=== PATIENT | female | born 1970 | race Caucasian/White ===

== ENCOUNTER 2021-03-10 10:00 | Outpatient (RCR) | payer BC, SELFPAY | END 2021-06-09 09:41 | disposition home or self-care (01) | LOC: HO.PTCHIC 10:00 | PROVIDERS: PCP Physician Assistant Medical; Visit Provider Physician Assistant Medical | DX: M54.2 Cervicalgia (principal) | CPT/HCPCS: 97110; 97140; 97161 ==

== ENCOUNTER 2023-05-01 09:18 | Outpatient (AMB) | payer BC, SELFPAY ==
--- NOTE | 2023-05-01 09:23 | A.OFFVIS_ITS ---
Intake Vital Signs 05/01/23 09:30 Height 5 ft 2 in Weight 207 lb 4 oz BMI 37.9 BP 124/82 Blood Pressure Location Lt brachial Position Sitting Pulse 71 Pulse Source Pulse Oximeter Pulse Oximetry (%) 97 Oxygen Delivery Method Room Air Intake Visit Reasons: ENP-Snoring/Fatigue-LVM Intake Note: Patient presents for Trouble sleeping and very exhausted. Snoring a lot. Allergies No Known Allergies Allergy (Verified 05/01/23 09:28) HPI HPI Comments History of Present Illness Details 52 y/o female patient presents for new i n-person visit for sleep consultation. Pt reports trouble sleeping, difficulty staying sleep. She snores loudly, and it wakes her up. Pt reports non refreshing sleep, morning headache, and daytime sleepiness. She gained at least 25 lb during the pandemic. Sleep questionnaire: Have you ever been diagnosed with a sleep disorder? No. Have you ever had a sleep study in the past? No. Have you ever been treated for a sleep disorder? No. Do you take medications for a sleep disorder? Zquel, melatonin, Advil PM occasionally. Do you snore? Yes. Do you wake up gasping at night? No. Do you have episodes of apneas? Don't know. If yes, are they witnessed? No, sleeps alone. Do you have episodes of nocturnal chest pain or dyspnea? No. Do you have difficulty initiating sleep? No. Do you have difficulty maintaining sleep? Yes. Do you wake up tired? Yes. Do you have headaches upon awakening? Yes, occasionally. Do you wake up with dry mouth or throat? Yes. Do you have GERD? Yes. Do you have nocturia? Yes, occasionally. Do you have nocturnal leg cramps? No. Do you have symptoms of restless legs? No. Do you act out your dreams? No. Sleep hygiene questionnaire: What is your usual sleep routine? Usual bedtime is at 10-11 pm ; Usual wake up time is at 7-8 am. Do you take naps? When she can. Is your sleep environment cool, dark, and quiet? Yes. Do you exercise? Yes, stretching and dancing. Do you take caffeine or other stimulants? No. Do you use electronics in bed? Yes. What is your work schedule? 9 am to 2 pm. Hypersomnolence questionnaire: Do you have daytime tiredness or fatigue? Yes. Do you easily fall asleep when inactive? Not that often. Have you ever had episodes of sudden weakness? No. Have you ever had episodes of sudden weakness associated with strong emotions? No. PFSH Surgical History H/O section Family History Father Atherosclerosis Mother Skin cancer Diabetes Hypertension Social History Alcohol intake: current Comment: Social drinking Patient Tobacco Use Status: Never used Tobacco Review of Systems Const All systems reviewed & are unremarkable except as noted in HPI and below Physical Exam Vital Signs: Last Vital Signs Pulse 71 05/01/23 09:30 BP 124/82 05/01/23 09:30 Pulse Ox 97 05/01/23 09:30 Oxygen Delivery Method Room Air 05/01/23 09:30 BMI result Body Mass Index 37.9 Const General: cooperative Nutritional Appearance: obese Orientation/consciousness: patient oriented x3 Neck Neck: Yes full ROM and Yes supple Resp Effort & Inspection: normal respiratory effort and able to speak in complete sentences Neuro General: patient oriented x3, gait normal and moves all extremities Cranial nerves: Yes CN's II-XII intact bilaterally Cognition (Neuro): normal cognition Gait exam (Neuro): Normal gait present Motor exam (neuro): 5/5 motor strength present throughout Assessment & Plan Assessment & Plan (1) Daytime sleepiness: Code(s): R40.0 - Somnolence (2) Loud snoring: Code(s): R06.83 - Snoring Plan Pt is advised to undergo home sleep study to assess for sleep apnea. Will f/u with pt after study to discuss results and appropriate treatment options. Sleep hygiene education provided, limit electronic use before bedtime. Pt to call with any worsening concerns or questions. Orders: Orders RT home sleep study Today R06.83 - Snoring, R40.0 - Somnolence Coding Level of Care Code New Pt Level 3 (50914) Diagnoses Daytime sleepiness R40.0 Loud snoring R06.83
[2023-05-01 09:30] VITALS: BP 124/82; PULSE 71; O2SAT 97; BMI 37.9
== END 2023-05-01 10:24 | disposition home or self-care (01) ==
PROVIDERS: PCP Physician Assistant Medical; Visit Provider Nurse Practitioner Family
DX: R40.0 Somnolence (principal); R06.83 Snoring
CPT/HCPCS: 99203

== ENCOUNTER → 2023-05-01 09:18 | Outpatient (BNVA) | payer BC, SELFPAY | PROVIDERS: PCP Physician Assistant Medical; Visit Provider Nurse Practitioner Family ==

== ENCOUNTER → 2023-07-04 08:20 | Outpatient (REF) | payer BC, SELFPAY | LOC: HO.SL 08:20 | PROVIDERS: PCP Internal Medicine; Visit Provider Nurse Practitioner Family | DX: G47.33 Obstructive sleep apnea (adult) (pediatric) (principal); R06.83 Snoring; R40.0 Somnolence | CPT/HCPCS: 95806 ==

== ENCOUNTER → 2023-07-04 08:32 | Outpatient (BNV) | payer BC, SELFPAY | PROVIDERS: PCP Internal Medicine; Visit Provider Psychiatry & Neurology Neurology | DX: G47.33 Obstructive sleep apnea (adult) (pediatric) (principal) | CPT/HCPCS: 95806 ==